=== PATIENT | male | born 1990 | race Caucasian/White ===

== ENCOUNTER 2017-06-07 00:58 | Emergency (ER) | payer OTHER ==
[~2017-06-07] VITALS: Ht 167.6 cm; Wt 68.0 kg
[~2017-06-07 00:58] MED LIST: ALBU90OI INH; METCAR500 PO; Zithromax250 MG PO
[2017-06-07] MEDS ORDERED: Mucinex600 MG PO (03:59)
[2018-02-09] MEDS ORDERED: Naprosyn500 MG PO (11:53)
[2018-02-09] MEDS ORDERED: CYCL10 PO (11:53)
== END 2017-06-07 04:44 | disposition home or self-care (01) ==
LOC: ER 00:58
DX: J06.9 Acute upper respiratory infection, unspecified (principal); F17.200 Nicotine dependence, unspecified, uncomplicated
CPT/HCPCS: 96372; 99283; J1885

== ENCOUNTER 2017-06-19 14:00 | Emergency (ER) | payer OTHER ==
[~2017-06-19] VITALS: Ht 167.6 cm; Wt 63.5 kg
[~2017-06-19 14:00] MED LIST changes: +Mucinex600 MG PO
[2017-06-19 16:06] LABS: BASOPHILS ABSOLUTE AUTO 0.07 K/mm3 (0.00-0.23); BASOPHILS PERCENT AUTO 1 % (0-2); EOSINOPHILS ABSOLUTE AUTO 0.23 K/mm3 (0.00-0.68); EOSINOPHILS PERCENT AUTO 2 % (0-6); Hemoglobin 14.4 g/dL (13.5-17.5); IMMATURE GRAN ABSOLUTE AUTO 0.04 K/mm3 (0.00-0.10); IMMATURE GRAN PERCENT AUTO 0 % (0-1); LYMPHOCYTES ABSOLUTE AUTO 2.56 K/mm3 (0.84-5.20); LYMPHOCYTES PERCENT AUTO 20 % (21-46); MONOCYTES ABSOLUTE AUTO 1.12 K/mm3 (0.16-1.47); MONOCYTES PERCENT AUTO 9 % (4-13); Mean Corpuscular HGB Conc 34.3 g/dL (31.5-36.5); Mean Corpuscular Volume 85 fL (80-100); Mean Platelet Volume 10.5 fL (9.1-12.4); NEUTROPHILS ABSOLUTE AUTO 9.11 K/mm3 (1.96-9.15); NEUTROPHILS PERCENT AUTO 69 % (41-73); Platelet Count 228 K/mm3 (150-400); RDW Coefficient Variation 12.5 % (11.7-14.2); RDW Standard Deviation 38.3 fL (35.1-46.3); Red Blood Cell Count 4.97 M/mm3 (4.30-5.90); White Blood Cell Count 13.13 K/mm3 (4.00-11.30)
[2017-06-19 16:23] LABS: Influenza A Negative (NEGATIVE); Influenza B Negative (NEGATIVE)
[2017-06-19 16:26] LABS: Alanine Aminotransfer (ALT/SGP 22 U/L (12-78); Albumin, Blood 3.6 g/dL (3.4-5.0); Albumin/Globulin Ratio 1.1 (0.8-1.8); Alk Phos 93 U/L (50-136); Anion Gap 7 mmol/L (6-16); Aspartate Aminotrans (AST/SGOT 30 U/L (12-37); Bilirubin, Total 0.5 mg/dL (0.1-1.0); Blood Urea Nitrogen 6 mg/dL (8-24); Bun/Creatinine Ratio 8.6 (12.0-20.0); CO2, Blood 25 mmol/L (21-32); Chloride, Blood 109 mmol/L (98-108); Globulin, Blood 3.2 g/dL (2.2-4.0); Glomerular Filtration Rate >60 (60-); Glucose, Blood 86 mg/dL (70-99); Sodium, Blood 141 mmol/L (136-145); Total Protein, Blood 6.8 g/dL (6.4-8.2)
[2017-06-19] MEDS ORDERED: Zofran Odt4 MG SL (17:27)
[2017-06-19] MEDS ORDERED: Mucinex600 MG PO (17:27)
[2017-06-19] MEDS ORDERED: AZIT250 PO (17:27)
[2018-02-09] MEDS ORDERED: Naprosyn500 MG PO (11:53)
[2018-02-09] MEDS ORDERED: CYCL10 PO (11:53)
== END 2017-06-19 17:36 | disposition home or self-care (01) ==
LOC: ER 14:00
PROVIDERS: Physician Assistant
DX: R11.2 Nausea with vomiting, unspecified (principal); R05 Cough; R06.02 Shortness of breath; F17.200 Nicotine dependence, unspecified, uncomplicated; Z79.899 Other long term (current) drug therapy
CPT/HCPCS: 36415; 71046; 80053; 81000; 83690; 85025; 87804; 99284

== ENCOUNTER 2018-12-05 20:30 | Emergency (ER) | payer OTHER ==
[~2018-12-05] VITALS: Ht 167.6 cm; Wt 63.5 kg
[~2018-12-05 20:30] MED LIST changes: +AZIT250 PO; +CYCL10 PO; +Naprosyn500 MG PO; +Zofran Odt4 MG SL
== END 2018-12-05 22:28 | disposition home or self-care (01) ==
LOC: ER 20:30
DX: G43.109 Migraine with aura, not intractable, without status migrainosus (principal); F17.200 Nicotine dependence, unspecified, uncomplicated
CPT/HCPCS: 96361; 96374; 96375; 99283-25; J0780; J1200; J1885; J7030

== ENCOUNTER 2019-02-26 15:46 | Emergency (ER) | payer OTHER ==
[~2019-02-26] VITALS: Ht 165.1 cm; Wt 68.0 kg
[2019-02-26] MEDS ORDERED: IBUP800 PO (17:01)
== END 2019-02-26 17:11 | disposition home or self-care (01) ==
LOC: ER 15:46
DX: S60.222A Contusion of left hand, initial encounter (principal); S60.221A Contusion of right hand, initial encounter; F17.210 Nicotine dependence, cigarettes, uncomplicated; W22.8XXA Striking against or struck by other objects, initial encounter
CPT/HCPCS: 73110; 73130; 99283-25

== ENCOUNTER 2019-05-02 17:56 | Emergency (ER) | payer OTHER ==
[~2019-05-02] VITALS: Ht 167.6 cm; Wt 61.2 kg
[~2019-05-02 17:56] MED LIST changes: +IBUP800 PO
[2019-05-02 19:39] LABS: Influenza A Positive (NEGATIVE); Influenza B Negative (NEGATIVE)
== END 2019-05-02 20:54 | disposition left against medical advice (07) ==
LOC: ER 17:56
PROVIDERS: Physician Assistant
DX: Z53.21 Procedure and treatment not carried out due to patient leaving prior to being seen by health care provider (principal)
CPT/HCPCS: 87804; 99283

== ENCOUNTER 2022-09-08 19:16 | Emergency (ER) | payer OTHER ==
[~2022-09-08] VITALS: Ht 170.2 cm; Wt 68.0 kg
[~2022-09-08 19:16] MED LIST changes: +LIDOCAINE1 EACH TOP; +Robaxin750 MG PO
[2022-09-08 19:21] VITALS: BP 140/83
== END 2022-09-08 20:29 | disposition home or self-care (01) ==
LOC: ER 19:16
DX: S46.911A Strain of unspecified muscle, fascia and tendon at shoulder and upper arm level, right arm, initial encounter (principal); F17.210 Nicotine dependence, cigarettes, uncomplicated; V47.5XXA Car driver injured in collision with fixed or stationary object in traffic accident, initial encounter
CPT/HCPCS: 73030

== ENCOUNTER 2023-07-05 18:47 | Emergency (ER) | payer OTHER ==
[~2023-07-05] VITALS: Ht 167.6 cm; Wt 65.8 kg
[2023-07-05 18:54] VITALS: BP 140/97
[2023-07-05 20:12] LABS: Influenza A, PCR NEGATIVE (NEGATIVE); Influenza B, PCR NEGATIVE (NEGATIVE); Resp Syncytial Virus, PCR NEGATIVE (NEGATIVE); SARS-Cov-2 (COVID-19) PCR, MMC NEGATIVE (NEGATIVE)
== END 2023-07-05 19:25 | disposition home or self-care (01) ==
LOC: ER 18:47
PROVIDERS: Emergency Medicine
DX: J20.9 Acute bronchitis, unspecified (principal); F17.200 Nicotine dependence, unspecified, uncomplicated; Z79.899 Other long term (current) drug therapy
CPT/HCPCS: 0241U; 71046; 99283-25